=== PATIENT | male | born 1995 | race Caucasian/White ===

== ENCOUNTER 2022-04-24 13:00 | Emergency (ER) | payer OTHER, SELFPAY ==
--- NOTE | ~2022-04-24 | XR_ITS ---
EXAMINATION: XR hand RT min 3V DATE: 04/24/2022 13:39 INDICATION: Right hand dog bite. TECHNIQUE: 4 views of right hand were obtained. COMPARISON: None. FINDINGS: Bone alignment is normal. No fracture. Joint spaces are normal. There is soft tissue gas in the hand and wrist. IMPRESSION: 1. No fracture or radiopaque foreign body. Reviewed, dictated and finalized at location A. [employer]
[2022-04-24 13:06] VITALS: BP 116/76; PULSE 75; RESP 20; TEMP 36.8; O2SAT 98
--- NOTE | 2022-04-24 13:16 | ED.ASTHMA ---
HPI - Asthma General Chief Complaint: Animal Bite Stated Complaint: Dot Bite Hands Time Seen by Provider: 04/24/22 13:02 Discharge Plan Discharge Follow-up/Referrals: Yannick Yanes MD [Primary Care Provider] -
--- NOTE | 2022-04-24 13:17 | ED.ANIMALBIT ---
HPI - Animal Bite General Chief Complaint: Animal Bite Stated Complaint: Dot Bite Hands Time Seen by Provider: 04/24/22 13:17 History of Present Illness HPI narrative: patient brought in by mother for evaluation of dog bite to right hand. Patient was disciplining his Doberman and the dog became aggressive and bit patient multiple puncture wounds to right hand. puncture wound to wrist and middle finger as well asa multiple puncture wounds to hand. Related Data Allergies Allergy/AdvReac Type Severity Reaction Status Date / Time No Known Allergies Allergy Verified 04/24/22 13:20 Review of Systems Review of Systems: CONSTITUTIONAL: Denies fever, chills, or sweats. EYES: Denies visual changes, redness, or discharge. ENT: Denies rhinorrhea, congestion, sore throat, or otalgia. CARDIOVASCULAR: Denies chest pain, palpitations, or edema. RESPIRATORY: Denies cough or dyspnea. GASTROINTESTINAL: Denies abdominal pain, nausea, vomiting, or diarrhea. GENITOURINARY: Denies dysuria or hematuria. SKIN: Denies rash or itching. MUSCULOSKELETAL: Denies back pain, joint pain, or myalgia. NEUROLOGIC: Denies headache, numbness, or weakness. PSYCHIATRIC: Denies anxiety or depression. PMFSH Comments At time of signature, agree with nursing past medical, surgical, social and family history. There is no relevant family history pertinent to the presenting complaint Exam Narrative: GENERAL: Well-appearing, well-nourished, and in no acute distress. HEAD: Normocephalic, atraumatic. EYES: PERRLA and EOMI. ENT: Nares clear, no rhinorrhea or epistaxis. Mucous membranes moist. NECK: Supple. CHEST: Clear to auscultation. No respiratory distress. HEART: Regular rate and rhythm. No murmur heard. Normal peripheral pulses. ABDOMEN: Soft, nontender, nondistended, normal active bowel sounds. EXTREMITIES: Normal range of motion. No edema. HAND EXAM - multiple puncture wounds to right hand, no swelling, no erythema, normal digit cascade with flexion of fingers, median nerve, ulnar nerve, radial nerve is intact. Normal sensation of each side of each finger, can perform `ok? sign, `cross over finger test of index and middle fingers? and `thumbs up? sign, normal thumb opposition, no scissoring. good capillary refill and radial pulse. normal flexion and extension of fingers and wrist. normal supination at wrist. Normal forearm and elbow exam. SKIN: Warm, dry, no rash. NEURO: No focal deficits. Alert and oriented x3. [place] Coma Scale Eye Opening: Spontaneous 4 [place] Coma Scale Motor: Obeys Commands 6 [place] Coma Scale Verbal: Oriented 5 Eduardo Coma Scale Total 15 Skin: Wounds: wounds noted (puncture wound to right wrist right middle finger and multiple abrasions) Course Course Level of Care: Express Care Visit MDM - Animal Bite Differential Diagnosis Differential diagnosis: Likely bite by animal, cat bite, dog bite, rabies contact and other Discharge Plan Discharge Clinical Impression: Dog bite Patient Disposition: Home, Self-Care Condition: Stable Instructions: Antibiotic Form, Animal Bite (ED) Additional Instructions: medication as prescribed until gone change dressing daily wash with warm soapy water twice daily follow up with PCP in 2-3 days for re evaluation if any new or worsening of symptoms go to er immediately Prescriptions: New ibuprofen 800 mg tablet 800 mg PO TID 3 Days Qty: 9 0RF mupirocin 2 % ointment 1 applic TOPICAL TID Qty: 22 0RF amoxicillin-pot clavulanate 875-125 mg tablet 1 tablet PO Q12H 7 Days Qty: 14 0RF Follow-up/Referrals: Yannick Yanes MD [Primary Care Provider] -
[2022-04-24] MEDS: KETOROLAC (*BKC) 60 MG/2 ML VIAL IM (13:24)
[2022-04-24] MEDS: TETANUS,DIPHTHERIA,AC PERTUSSIS ADULT (0.5 ML) BOOSTRIX IM (13:34)
== END 2022-04-24 14:10 | disposition home or self-care (01) ==
PROVIDERS: Emergency Provider Nurse Practitioner Family; PCP Family Medicine
DX: S61.431A Puncture wound without foreign body of right hand, initial encounter (principal); W54.0XXA Bitten by dog, initial encounter; Z23 Encounter for immunization
CPT/HCPCS: 73130; 90471; 90715; 96372; 99213; G0463; J1885

== ENCOUNTER 2022-07-26 14:37 | Emergency (ER) | payer OTHER, SELFPAY ==
[2022-07-26 14:45] VITALS: BP 111/71; PULSE 107; RESP 16; TEMP 37.1; O2SAT 100
[2022-07-26 14:47] VITALS: BP 111/71; PULSE 107; RESP 16; TEMP 37.1; O2SAT 100
--- NOTE | 2022-07-26 14:51 | ED.SKABFB ---
HPI - Skin/Abscess/Foreign Bdy General Chief complaint: Skin/Abscess/Foreign Body Stated complaint: Facial Swelling Time Seen by Provider: 07/26/22 14:41 Source: patient and RN notes reviewed History of Present Illness HPI narrative: Patient is a 26-year-old male who presents to urgent care with complaints of severe right-sided facial swelling. Patient states he noticed what he thought was a pimple on the right cheek yesterday and woke up with a severe swelling. Patient denies any fever, nausea or vomiting. States he has been taking Tylenol. Patient does have a history of chronic cystic acne with another area on the chin. Patient states he does tend to pick on pimples. No other acute complaints. No acute distress noted. Patient aware of the plan of care. Some parts of this dictation were generated by voice recognition software and may contain typographical and/or grammatical inaccuracies. Related Data Allergies Allergy/AdvReac Type Severity Reaction Status Date / Time No Known Allergies Allergy Verified 04/24/22 13:20 Review of Systems Review of Systems: CONSTITUTIONAL: Denies fever, chills, or sweats. EYES: Denies visual changes, redness, or discharge. ENT: Denies rhinorrhea, congestion, sore throat, or otalgia. Reports of right-sided facial swelling CARDIOVASCULAR: Denies chest pain, palpitations, or edema. RESPIRATORY: Denies cough or dyspnea. GASTROINTESTINAL: Denies abdominal pain, nausea, vomiting, or diarrhea. GENITOURINARY: Denies dysuria or hematuria. SKIN: Denies rash or itching. MUSCULOSKELETAL: Denies back pain, joint pain, or myalgia. NEUROLOGIC: Denies headache, numbness, or weakness. All other systems reviewed are negative, except as documented in HPI. PMFSH Comments At the time of my signature, I reviewed and agree with the nursing past medical, surgical, social, and family history. There is no relevant family history pertinent to the patient complaint. Exam Narrative: GENERAL: This is a well-nourished, well-developed patient, in no apparent distress. HEAD: normocephalic, atraumatic. Moderate right-sided facial swelling EYES: PERRL. Sclera clear/white. Vision is grossly intact. EARS: External ears normal, auditory canals clear and without drainage, TMs normal without perforation. Hearing grossly intact. NOSE: External nose normal with no obvious nasal discharge, nares without redness, no rhinorrhea. THROAT: Mucous membranes moist, posterior pharynx clear. NECK: Neck supple SKIN: 0.25 cm dark nondraining folliculitis to the center of the right cheek with surrounding edema and erythema. Warm, intact with no suspicious lesions or rash, good texture and turgor. NEURO: awake, alert, and oriented to person, place and time. There were no obvious focal neurologic abnormalities. EXTREMITIES: No clubbing, cyanosis, or edema. Course Course Level of Care: Express Care Visit Vital Signs Vital signs: Vital Signs Temperature 98.7 F 07/26/22 14:45 Pulse Rate 107 H 07/26/22 14:45 Respiratory Rate 16 07/26/22 14:45 Blood Pressure 111/71 07/26/22 14:45 Pulse Oximetry 100 07/26/22 14:45 Oxygen Delivery Room Air 07/26/22 14:45 Temperature 98.7 F 07/26/22 14:47 Pulse Rate 107 H 07/26/22 14:47 Respiratory Rate 16 07/26/22 14:47 Blood Pressure 111/71 07/26/22 14:47 Pulse Oximetry 100 07/26/22 14:47 Oxygen Delivery Room Air 07/26/22 14:47 Reviewed MDM - Skin/Abscess/Foreign Bdy MDM Narrative Medical decision making narrative: Advised patient complete both oral antibiotic regimen as prescribed. Be sure to eat and drink with the medication. May use a cool or warm compress for comfort. Take Tylenol/ibuprofen as needed. It is highly likely the area is related to staph infection. Therefore any facial cloths cannot be reused and must be washed after each bath. Use plain dial soap and water to clean the area. Do not try to open the area. If he develops any increase in swelling
== END 2022-07-26 15:15 | disposition home or self-care (01) ==
PROVIDERS: Emergency Provider Nurse Practitioner Family
DX: L03.211 Cellulitis of face (principal)
CPT/HCPCS: 99213; G0463

== ENCOUNTER 2022-08-02 11:38 | Outpatient (CLI) | payer OTHER, SELFPAY ==
[2022-08-02 19:06] LABS: Kit Draw Collected
== END 2022-08-02 11:39 | disposition home or self-care (01) ==
LOC: ANHGOSHLAB 11:39
PROVIDERS: Visit Provider Clinical Nurse Specialist
DX: F41.9 Anxiety disorder, unspecified (principal); Z13.228 Encounter for screening for other metabolic disorders
CPT/HCPCS: 36415